=== PATIENT | female | born 1965 | race Two or more races ===

== ENCOUNTER 2017-09-11 18:57 | Emergency (ER) | payer OTHER ==
[~2017-09-11] VITALS: Ht 142.2 cm; Wt 49.9 kg
[2017-09-11] MEDS ORDERED: PRAVASTATIN SOD20 M1 ORAL (19:06)
[2017-09-11] MEDS ORDERED: METFORMIN HCL500 M1 ORAL (19:06)
[2017-09-11 19:10] VITALS: BP 114/75
[2017-09-11] MEDS ORDERED: IBUPROFEN600 MG ORAL (19:48)
[2017-09-11] MEDS ORDERED: CORTISPORIN EAR10 ML LEFT EAR (19:48)
[2017-09-11] MEDS ORDERED: PROMETHAZINE-D118 ML ORAL (19:48)
[2017-09-11 19:56] VITALS: BP 114/75
--- NOTE | 2017-09-11 22:27 | Emergency Room Report ---
History of Present Illness General Chief Complaint: Earache Source: Patient ([place]) Present Illness HPI The patient is a 52-year-old female presenting for 3 days of left ear pain as well as other symptoms including nasal congestion, fever, sore throat, and cough. Pain is a 8-10 dull ache to the left ear and does not radiate. Worse with touch.She states that she went to another clinic yesterday and was told she may have Pneumonia. She states that chest x-ray was not done. She was given prescription for azithromycin which she did not fill. She denies other symptoms including vomiting, shortness of breath, chest pain, abdominal, dizziness, headache ([place]) Allergies: Coded Allergies: No Known Allergies (Unverified , 09/11/17) Patient History Past Medical History: see triage record Last Menstrual Period: 05/2016 Now: No Reviewed Nursing Documentation: PMH: Agreed, PSxH: Agreed ([place]) Review of Systems All Other Systems: negative except mentioned in HPI ([place]) Physical Exam Vital Signs Date Time Temp Pulse Resp B/P (MAP) Pulse Ox O2 Delivery O2 Flow Rate FiO2 09/11/17 19:01 98.6 87 19 114/75 97 Room Air Sp02 EP Interpretation: reviewed, normal General Appearance: no apparent distress, alert, GCS 15, non-toxic Head: normocephalic, atraumatic Eyes: bilateral eye normal inspection, bilateral eye PERRL ENT: hearing grossly normal, normal pharynx, no angioedema, normal voice, uvula midline, moist mucus membranes, other - L EAC erythema and edema Respiratory: chest non-tender, lungs clear, normal breath sounds, speaking full sentences Cardiovascular #1: regular rate, rhythm, no edema Musculoskeletal: back normal, gait/station normal, normal range of motion, non- tender Neurologic: alert, oriented x3, responsive, motor strength/tone normal, sensory intact, speech normal Psychiatric: judgement/insight normal, memory normal, mood/affect normal, no suicidal/homicidal ideation Skin: normal color, no rash, warm/dry, well hydrated Lymphatic: no adenopathy ([place]) Medical Decision Making PA Attestation Dr. Rasheed is my supervising physician. Patient management was discussed with my supervising physician ([place]) Diagnostic Impression: Primary Impression: Otitis externa Qualified Codes: H60.502 - Unspecified acute noninfective otitis externa, left ear Additional Impression: Viral respiratory infection ER Course The patient is a 52-year-old female presenting for 3 days of left ear pain as well as other symptoms including nasal congestion, fever, sore throat, and cough Differential diagnosis include but not limited to otitis externa, pharyngitis, sinusitis, AOM, bronchitis, PNA Physical exam: Vitals within normal limits. No apparent distress. HEENT: Left ear external auditory canal is erythematous and edematous. White discharge is noted. Tympanic membrane is intact. No bulging. There is no cervical lymphadenopathy. Otherwise exam is unremarkable CXR unremarkable The patient will be discharged home with a prescription for Cortisporin, cough medication, and motrin. ER precautions given ([place].Tay) Chest X-Ray Diagnostic Results Chest X-Ray Diagnostic Results : Chest X-Ray Ordered: Yes # of Views/Limited/Complete: 1 View Indication: Other - cough EP Interpretation: Yes PA Xray: Interpretation reviewed, by supervising MD, and agrees with findings. Interpretation: no consolidation, no effusion, no pneumothorax Impression: No acute disease Electronically Signed by: [place] PA-C ([place] PReginaldAReginald) Chest X-Ray Diagnostic Results : Electronically Signed by: Mary documentation reviewed by me and is accurate, Davie Rasheed MD. (Davie Rasheed M.D.) Last Vital Signs Date Time Temp Pulse Resp B/P (MAP) Pulse Ox O2 Delivery O2 Flow Rate FiO2 09/11/17 19:01 98.6 87 19 114/75 97 Room Air Status: improved ([place] P.A.) Disposition: HOME, SELF-CARE Condition: Improved Scripts Neomycin/Polymyxin B Sulf/Hc* (CORTISPORIN EAR SOLUTION*) 10 Ml Solution 4 DROP LEFT EAR QID, #10 ML 0 Refills Prov: [place] P.A. 09/11/17 D-Methorphan Hb/Prometh Hcl* (PROMETHAZINE-DM SYRUP*) 118 Ml Syrup 5 ML ORAL Q6H Y for For Cough, #118 ML 0 Refills Prov: [place].A. 09/11/17 Ibuprofen* (MOTRIN*) 600 Mg Tablet 600 MG ORAL Q8H Y for For Pain, #30 TAB 0 Refills Prov: [place] P.A. 09/11/17 Referrals: NOT CHOSEN IPA/,REFERRING (PCP) Patient Instructions: Otitis Externa, Viral Respiratory Infection Additional Instructions: I discussed my findings with the patient. All questions and concerns have been answered. Treatment and medication compliance have been addressed. I advised the patient that they need to follow up with PMD in 3-5 days. Return to ED if pain remains or worsens, cough worsens or remains, you notice blood in your sputum, you notice wheezing, you experience a fever, or if needed for any reason. Patient verbalized understanding of discharge instructions. [place] Sep 11, 2017 22:27 Davie Rasheed M.D. Sep 12, 2017 07:53
--- NOTE | 2017-09-14 15:18 | Diagnostic Imaging Report ---
Indication: Cough Technique: XRAY Chest 1v Comparison: None Findings: The cardiomediastinal silhouette is within normal limits. There is no focal consolidation, pneumothorax or pleural effusion. Osseous structures demonstrate no acute abnormality. Impression: No acute cardiopulmonary disease.
== END 2017-09-11 19:56 | disposition home or self-care (01) ==
LOC: EMR 19:56
DX: H60.92 Unspecified otitis externa, left ear (principal); J06.9 Acute upper respiratory infection, unspecified; B34.9 Viral infection, unspecified
CPT/HCPCS: 71045; 99284